=== PATIENT | female | born 1980 | race Caucasian/White ===

== ENCOUNTER 2024-01-12 00:49 | Emergency (ER) | payer MEDICAID, OTHER ==
[~2024-01-12] VITALS: Ht 167.6 cm; Wt 72.7 kg
[2024-01-12 01:00] VITALS: BP 147/83; PULSE 87; RESP 16; TEMP 98.3; O2SAT 97
[2024-01-12] MEDS ORDERED: ACET500T58 PO (03:48)
== END 2024-01-12 04:10 | disposition home or self-care (01) ==
LOC: ER 00:49 → EDBD 00:49 → ER 04:10
DX: H92.02 Otalgia, left ear (principal); F15.10 Other stimulant abuse, uncomplicated; F12.10 Cannabis abuse, uncomplicated; F17.210 Nicotine dependence, cigarettes, uncomplicated; Z88.2 Allergy status to sulfonamides; Z59.00 Homelessness unspecified; Z79.899 Other long term (current) drug therapy